=== PATIENT | female | born 1975 | race Caucasian/White ===

== ENCOUNTER 2016-09-02 08:47 | Day surgery (SDC) | payer OTHER ==
--- NOTE | ~2016-09-02 | OP ---
Record Of Operation [facility] [address] [place]. [address] NAME: YFN HENSON : 75 STATUS : REG [facility]#: [id number] AGE: 41 ADM/REG DATE : 09/02/16 MR#: [id number] REPORT SERV DATE: 09/02/16 DICTATED BY: KRISTA ROONEY III DATE: 09/02/16 REPORT STATUS : Draft TRANSCRIBED BY: MODL DATE: 09/02/16 DATE OF PROCEDURE: 09/02/2016 PREOPERATIVE DIAGNOSIS: Symptomatic umbilical hernia. POSTOPERATIVE DIAGNOSIS: Symptomatic umbilical hernia. PROCEDURE: Repair of umbilical hernia. SURGEON: Krista Rooney M.D. ANESTHESIA: General with intubation. COMPLICATIONS: None. ESTIMATED BLOOD LOSS: Less than 5 mL. SPECIMENS: None. DRAINS: None. LAP AND SPONGE COUNT: Correct x3. BRIEF HISTORY: This 41-year-old female presents with a symptomatic umbilical hernia. It was felt that open repair of this hernia was indicated. This procedure, the risks, benefits, and alternatives, including but not limited to the risk for bleeding, infection, enterotomy, injury to any abdominal structure, postop small bowel obstruction, ileus, seroma formation, hematoma formation, recurrence of the hernia, and unforeseen complications including deep venous thrombosis, pulmonary embolus, myocardial infarction, stroke, pneumonia, and were fully explained to the patient prior to the surgery. The expected length of recovery was explained. The patient had questions, which were answered. She fully understood the risk and agreed to the surgery as planned. DESCRIPTION OF PROCEDURE: After being appropriately identified and after discussing the risks and benefits of the surgery with her again in the preoperative area, and after identifying the hernia with her in the preoperative area, the patient was taken to the operating room, and placed in the supine position on the operating room table. General anesthesia was administered. She was intubated without difficulty. The abdomen was prepped and draped sterilely in the usual fashion. After an appropriate "time-out" per JCAHO standards, a small incision was made along the inferior border of the navel. The incision was continued through the subcutaneous tissue. Hemostasis was controlled with the cautery. Using sharp dissection, the navel was raised superiorly. The incision was continued down to the fascial defect. The fascial defect was fairly small, about 1 cm in size. Using sharp dissection, the skin and subcutaneous tissue around the defect anteriorly was fully mobilized. The underside of the defect was palpated posterior to make certain that there was no bowel beneath this. The skin and subcutaneous tissues were mobilized for several Record Of Operation [address] [address] NAME: YFN HENSON : 75 STATUS : REG [facility] PAT#: [id number] AGE: 41 ADM/REG DATE : 09/02/16 MR#: [id number] REPORT SERV DATE: 09/02/16 DICTATED BY: KRISTA ROONEY III DATE: 09/02/16 REPORT STATUS : Draft TRANSCRIBED BY: MODL DATE: 09/02/16 centimeters around the defect anteriorly. Hemostasis was assured. The fascial edges were then reapproximated with interrupted 0 Prolene sutures. The fascia came together nicely with no tension. Hemostasis was assured. The subcutaneous tissue was closed with a running 3-0 chromic suture. The skin was closed with a running subcuticular 4-0 Monocryl stitch. The incision was injected with 0.5% Marcaine. Dressings were applied. Anesthesia was reversed, and the patient was taken to the recovery room in stable condition. She tolerated the procedure well. Her family was informed the results of the surgery. The patient will be discharged when stable and comfortable, and able to void and ambulate. Her family was advised that she should keep the wound clean and dry for 48 hours, that she should not drive for four to five days after surgery or while using narcotics, that she should resume her usual medications, and that she should not perform any heavy lifting for five to six weeks. She has been asked to return in two weeks for followup sooner if any nausea, vomiting, fever, chills, wound drainage, abdominal pain, weakness, or other problems prior to that time. She was given prescription for Percocet 7.5 one t.i.d., #12, as needed for pain, which she was advised not to use while driving. NAOMY/CECI Krista Rooney III, M.D. / [id number] CC: Holli Dacosta III
--- NOTE | ~2016-09-02 | PREOPHP ---
PreOp History and Physical [address] [address] NAME: YFN HENSON : 75 STATUS : PRE [facility] PAT#: [id number] AGE: 41 ADM/REG DATE : MR#: [id number] REPORT SERV DATE: 09/02/16 DICTATED BY: EDWAR ROONEY III DATE: 08/27/16 REPORT STATUS : Draft TRANSCRIBED BY: MODL DATE: 08/27/16 HISTORY OF PRESENT ILLNESS: This 41-year-old female comes to the operating room for repair of a symptomatic umbilical hernia. The patient complains of pain in the periumbilical area. She states that several weeks ago, she felt a "pop" in the umbilical area. This was associated with pain which has become progressively worse. The patient has umbilical hernia, which is symptomatic. At times, it has symptoms suggesting incarceration. The patient comes now for repair of this hernia. PAST MEDICAL HISTORY: 1. Hyperlipidemia. 2. Narcolepsy. 3. Gastroesophageal reflux disease. 4. Sleep apnea. MEDICATIONS: 1. Adderall. 2. Aspirin. 3. Atorvastatin. 4. Prilosec. 5. ProAir. 6. Xyrem. ALLERGIES: ADVAIR DISKUS, DOXYCYCLINE, PENICILLIN, PHENERGAN, AND SYMBICORT. FAMILY HISTORY: Positive for heart disease and diabetes. SOCIAL HISTORY: The patient has a previous history of tobacco abuse. REVIEW OF SYSTEMS: The patient complains of weight gain and fatigue and back pain. PHYSICAL EXAMINATION: OBJECTIVE: GENERAL: Physical exam reveals an extremely obese female, in no acute distress. She is alert and oriented x3. VITAL SIGNS: Blood pressure 150/94, pulse 100, and temperature 97.5. HEENT: Unremarkable. NEUROLOGIC: Cranial nerves 2 through 12 are normal. LUNGS: Clear. CARDIAC: Normal. ABDOMEN: Obese and protuberant. Large panniculus. She has a small umbilical hernia present which is reducible. The abdomen is soft and nontender. EXTREMITIES: Normal. PreOp History and Physical [address] [address] NAME: YFN HENSON : 75 STATUS : PRE [facility] [place] PAT#: [id number] AGE: 41 ADM/REG DATE : MR#: [id number] REPORT SERV DATE: 09/02/16 DICTATED BY: EDWAR ROONEY III DATE: 08/27/16 REPORT STATUS : Draft TRANSCRIBED BY: CECI DATE: 08/27/16 LABORATORY DATA: CT scan of the abdomen and pelvis shows an umbilical hernia. ASSESSMENT: 1. A 41-year-old female with symptomatic umbilical hernia, with symptoms suggesting intermittent incarceration. 2. Morbid obesity. 3. Hyperlipidemia. 4. Narcolepsy. 5. GE reflux. 6. Sleep apnea. PLAN: The patient comes to the operating room now for repair of this umbilical hernia. This procedure, the risks, benefits, and alternatives, including not limited to the risk for bleeding, infection, enterotomy, injury to any abdominal structure, postop small bowel obstruction, ileus, seroma formation, hematoma formation, recurrence of the hernia, and unforeseen complications including deep venous thrombosis, pulmonary embolus, myocardial infarction, stroke, pneumonia, , have been explained to the patient prior to surgery. All her questions have been answered. She understands the risks and agrees to the surgery as planned. RHJ/CECI Edwar Rooney III, M.D. / [id number]
[~2016-09-02 08:47] MED LIST: AFRIN15 NAS; AMPHETAMINE SALT PO; CO Q-10100 MG PO; DEXEDRINE10 MG PO; FISH-EPA1000 MG PO; LIPITOR40 PO; PRILO PO; PROAIR HFA INH; [UNRECOGNIZED DRUG - REMARK] PO
[2016-09-02 14:55] LABS: HEMATOCRIT 40.1 % (36.0-48.0); HEMOGLOBIN 13.7 g/dL (12.0-16.0)
== END 2016-09-03 09:31 | disposition home or self-care (01) ==
LOC: SDC 08:47
PROVIDERS: Surgery
PROC: 0WQF0ZZ Repair Abdominal Wall, Open Approach (ICD-10-PCS; principal; 2016-09-02 10:30)
DX: K42.9 Umbilical hernia without obstruction or gangrene (principal); E78.5 Hyperlipidemia, unspecified; E66.01 Morbid (severe) obesity due to excess calories; K21.9 Gastro-esophageal reflux disease without esophagitis; G47.33 Obstructive sleep apnea (adult) (pediatric); E78.00 Pure hypercholesterolemia, unspecified; G47.419 Narcolepsy without cataplexy; Z88.0 Allergy status to penicillin; Z88.8 Allergy status to other drugs, medicaments and biological substances; Z90.710 Acquired absence of both cervix and uterus; Z98.890 Other specified postprocedural states
CPT/HCPCS: 71020; 80053; 85014; 85018; 85025; 87641; 93005; A9270-GY; J2250; J2270; J2405; J2710; J3010; J3370